=== PATIENT | male | born 1950 | race Caucasian/White ===

== ENCOUNTER 2019-02-27 05:01 | Day surgery (SDC) | payer MEDICARE ==
[2019-02-26 11:13] LABS: BASOPHILS % (AUTO) 0.6 % (0-1); EOSINOPHILS # (AUTO) 0.1 X10'3 (0-0.9); EOSINOPHILS % (AUTO) 2.4 % (0-6); HEMATOCRIT 45.7 % (42.0-52.0); HEMOGLOBIN 15.7 g/dl (14.0-17.9); LYMPHOCYTES # (AUTO) 1.3 X10'3 (1.1-4.8); LYMPHOCYTES % (AUTO) 31.6 % (21-51); MEAN CORPUSCULAR HEMOGLOBIN 33.4 PG (27.0-31.0); MEAN CORPUSCULAR HGB CONC 34.5 g/dL (33.0-36.5); MEAN PLATELET VOLUME 9.8 FL (7.4-10.4); MONOCYTES # (AUTO) 0.5 X10'3 (0-0.9); MONOCYTES % (AUTO) 11.2 % (2-12); NEUTROPHILS # (AUTO) 2.3 X10'3 (1.8-7.7); NEUTROPHILS % (AUTO) 54.2 % (42-75); PLATELET COUNT 131 X10'3 (140-440); RED BLOOD COUNT 4.71 X10'6 (4.70-6.10); RED CELL DISTRIBUTION WIDTH 12.9 % (11.5-14.5); WHITE BLOOD COUNT 4.2 X10'3 (4.5-11.0)
[2019-02-26 11:18] LABS: ALBUMIN 3.8 G/DL (3.4-5.0); ANION GAP 6 (8-16); BLOOD UREA NITROGEN 17 MG/DL (7-18); BUN/CREATININE RATIO 19.3 (5.4-32.0); CALCIUM 8.4 MG/DL (8.5-10.1); CHLORIDE 106 MMOL/L (99-107); CREATININE 0.88 MG/DL (0.60-1.10); GLUCOSE 107 MG/DL (70-104); POTASSIUM 4.3 MMOL/L (3.5-5.1); SODIUM 139 MMOL/L (135-145); TOTAL CARBON DIOXIDE 27.1 MMOL/L (24-32); eGFR 87 ML/MIN
[2019-02-26 11:22] LABS: PARTIAL THROMBOPLASTIN TIME 28 SECONDS (22-32)
[2019-02-27] VITALS (17 sets, daily range): BP systolic 97–145; BP diastolic 61–99
[~2019-02-27] VITALS: Ht 175.3 cm; Wt 91.0 kg
[2019-02-27] MEDS ORDERED: normal saline 1,000 ML IV SCH (05:40)
[2019-02-27] MEDS ORDERED: diphenhydrAMINE 25mg capsule PO PRN (05:40)
[2019-02-27] MEDS ORDERED: LORazepam 0.5 MG tablet PO PRN (05:40)
[2019-02-27] MEDS ORDERED: LIDOcaine/PRILOcaine 5gm cream TP ONE (05:40)
[2019-02-27] MEDS ORDERED: OMEP20TA5 PO (05:50)
[2019-02-27] MEDS ORDERED: TADA5TAB2 PO (05:50)
[2019-02-27] MEDS ORDERED: midazolam 2 mg/2 ml injection ONE (06:04)
[2019-02-27] MEDS ORDERED: heparin 1,000unit/ml 10ml vial 10 ML ONE (06:04)
[2019-02-27] MEDS ORDERED: iohexol 350 MG/ML 50ML vial IV ONE (06:04)
[2019-02-27] MEDS ORDERED: iohexol 350MG/ML 100ml bottle IV ONE (06:04)
[2019-02-27] MEDS ORDERED: fentaNYL/PF 50MCG/1 ML 2ML syringe ONE (06:04)
[2019-02-27] MEDS ORDERED: verapamil 2.5 mg/ml inj IV ONE (06:04)
[2019-02-27] MEDS ORDERED: nitroGLYCERIN-Tridil 50MG/D5W 250 ML IV ONE (06:04)
[2019-02-27] MEDS ORDERED: LIDOcaine 1% (10mg/ml)w/preservative injection 20ml MDV ONE (06:06)
[2019-02-27 09:21] LABS: ISTAT HGB ART 13.9 g/dl (14.0-18.0); ISTAT Hct ART 41 %PCV (42-52); ISTAT O2 SATURATION ARTERIAL 91 % (95-98); ISTAT SOURCE ART
[2019-02-27 09:21] LABS: ISTAT Hct MIX 41 %PCV (42-52); ISTAT O2 SATURATION MIX VENOUS 66 % (60-80); ISTAT SOURCE MIX
== END 2019-02-27 13:55 | disposition home or self-care (01) ==
LOC: SSTAY O 05:01
PROVIDERS: ATTEND Internal Medicine Cardiovascular Disease
DX: R94.39 Abnormal result of other cardiovascular function study (principal); I25.10 Atherosclerotic heart disease of native coronary artery without angina pectoris; E78.5 Hyperlipidemia, unspecified; I42.9 Cardiomyopathy, unspecified; J45.909 Unspecified asthma, uncomplicated; Z79.899 Other long term (current) drug therapy; Z96.652 Presence of left artificial knee joint; Z72.89 Other problems related to lifestyle; Z82.49 Family history of ischemic heart disease and other diseases of the circulatory system; Z79.01 Long term (current) use of anticoagulants
CPT/HCPCS: 36415; 80048; 82803; 85014; 85025; 85610; 85730; 93005; 93460; 99152; 99153; C1769; C1894; J1644; J2001; J2250; J3010; J7030; Q0163; Q9967; A4620; A6258; J3490

== ENCOUNTER 2020-03-19 10:18 | Day surgery (SDC) | payer MEDICARE ==
[2020-03-18 13:02] LABS: BASOPHILS % (AUTO) 0.9 % (0-1); EOSINOPHILS % (AUTO) 0.4 % (0-6); HEMATOCRIT 45.1 % (42.0-52.0); HEMOGLOBIN 15.6 g/dl (14.0-17.9); LYMPHOCYTES # (AUTO) 0.9 X10'3 (1.1-4.8); LYMPHOCYTES % (AUTO) 16.9 % (21-51); MEAN CORPUSCULAR HEMOGLOBIN 33.7 PG (27.0-31.0); MEAN CORPUSCULAR HGB CONC 34.5 g/dL (33.0-36.5); MEAN CORPUSCULAR VOLUME 97.6 FL (78-98); MEAN PLATELET VOLUME 9.6 FL (7.4-10.4); MONOCYTES # (AUTO) 0.5 X10'3 (0-0.9); MONOCYTES % (AUTO) 9.9 % (2-12); NEUTROPHILS # (AUTO) 3.7 X10'3 (1.8-7.7); NEUTROPHILS % (AUTO) 71.9 % (42-75); PLATELET COUNT 170 X10'3 (140-440); RED BLOOD COUNT 4.62 X10'6 (4.70-6.10); RED CELL DISTRIBUTION WIDTH 13.1 % (11.5-14.5); WHITE BLOOD COUNT 5.1 X10'3 (4.5-11.0)
[2020-03-18 13:08] LABS: ALBUMIN 3.8 G/DL (3.4-5.0); ANION GAP 8 (8-16); BLOOD UREA NITROGEN 29 MG/DL (7-18); BUN/CREATININE RATIO 26.6 (5.4-32.0); CALCIUM 8.8 MG/DL (8.5-10.1); CHLORIDE 107 MMOL/L (99-107); CREATININE 1.09 MG/DL (0.60-1.10); GLUCOSE 149 MG/DL (70-104); POTASSIUM 3.9 MMOL/L (3.5-5.1); SODIUM 141 MMOL/L (135-145); TOTAL CARBON DIOXIDE 25.7 MMOL/L (24-32); eGFR 67 ML/MIN
[2020-03-19] VITALS (19 sets, daily range): BP systolic 91–133; BP diastolic 47–93
[~2020-03-19] VITALS: Ht 175.3 cm; Wt 89.4 kg
[~2020-03-19 10:18] MED LIST: OMEP20TA5 PO; TADA5TAB2 PO
[2020-03-19] MEDS ORDERED: morphine 10mg/ml inj. IV ONE (10:35)
[2020-03-19] MEDS ORDERED: MIDAZolam 1mg/ml 10ml vial IV ONE (10:35)
[2020-03-19] MEDS ORDERED: amiodarone 150mg/dext, iso-os 100 ML IV ONE (10:35)
[2020-03-19] MEDS ORDERED: atropine 0.1mg/ml 10ml syringe IV ONE (10:35)
[2020-03-19] MEDS ORDERED: LORazepam 0.5 MG tablet PO ONE (10:35)
[2020-03-19] MEDS ORDERED: diphenhydrAMINE 25mg capsule PO ONE (10:35)
[2020-03-19] MEDS ORDERED: ALBU18HF2 INH (11:19)
[2020-03-19] MEDS ORDERED: LOSA50TA64 PO (11:20)
[2020-03-19] MEDS ORDERED: SPIR25TA5 PO (11:21)
--- NOTE | 2020-03-19 14:00 | NUR ---
Patient has ambulated the halls, has drank water, and is urinating. Patient has no complaints of dizziness or lightheadedness and has a steady gait. Patient has been educated regarding no driving for 24 hours, care after cardioversion, follow up appointment and when to seek medical attention. There have been no changes to his medications. , Kay is here to supervisor opening and picking patient and he has been escorted via to the car.
== END 2020-03-19 14:00 | disposition home or self-care (01) ==
LOC: SSTAY O 10:18
PROVIDERS: ATTEND Internal Medicine Cardiovascular Disease
DX: I48.19 Other persistent atrial fibrillation (principal); I25.10 Atherosclerotic heart disease of native coronary artery without angina pectoris; I42.0 Dilated cardiomyopathy; E78.5 Hyperlipidemia, unspecified; I34.0 Nonrheumatic mitral (valve) insufficiency; I49.5 Sick sinus syndrome; J45.909 Unspecified asthma, uncomplicated; Z96.652 Presence of left artificial knee joint; Z72.89 Other problems related to lifestyle; Z87.891 Personal history of nicotine dependence; Z79.01 Long term (current) use of anticoagulants; Z79.899 Other long term (current) drug therapy; Z82.49 Family history of ischemic heart disease and other diseases of the circulatory system
CPT/HCPCS: 36415; 80048; 85025; 85610; 92960; 93005; J0461; J2250; J2270

== ENCOUNTER 2021-01-14 07:47 | Outpatient (CLI) | payer MEDICARE ==
[~2021-01-14] VITALS: Ht 177.8 cm; Wt 90.7 kg
[2021-01-14] VITALS (8 sets, daily range): BP systolic 110–151; BP diastolic 69–95
[~2021-01-14 07:47] MED LIST changes: +ALBU18HF2 INH; +AMIO200T61 PO; +APIX5TAB3 PO; +BUDE10.22 INH; +LOSA50TA64 PO; +SPIR25TA5 PO; +[UNRECOGNIZED DRUG - OTHER]
[2021-01-14] MEDS ORDERED: regadenoson 0.4mg/5ml syringe IV ONE (08:35)
[2021-01-14] MEDS ORDERED: nitroGLYCERIN 0.4mg SUBLingual tab SL PRN (08:35)
[2021-01-14] MEDS ORDERED: metoprolol tartrate 1mg/ml inj IV PRN (08:35)
[2021-01-14] MEDS ORDERED: aminophylline 250mg/10ml inj. IV PRN (08:35)
== END 2021-01-14 23:59 | disposition home or self-care (01) ==
LOC: RAD 07:47
PROVIDERS: ATTEND Internal Medicine Cardiovascular Disease
DX: I25.10 Atherosclerotic heart disease of native coronary artery without angina pectoris (principal)
CPT/HCPCS: 78452; 93017; A9500; J0280; J2785

== ENCOUNTER 2022-07-06 10:32 | Emergency (ER) | payer MEDICARE ==
[~2022-07-06] VITALS: Ht 175.3 cm; Wt 90.9 kg
[~2022-07-06 10:32] MED LIST changes: +OMEP20TA43 PO; -OMEP20TA5 PO
[2022-07-06 11:00] LABS: BASOPHILS % (AUTO) 0.5 % (0-1); EOSINOPHILS # (AUTO) 0.1 X10'3 (0-0.9); EOSINOPHILS % (AUTO) 1.6 % (0-6); HEMATOCRIT 45.8 % (42.0-52.0); HEMOGLOBIN 15.7 g/dl (14.0-17.9); LYMPHOCYTES # (AUTO) 1.8 X10'3 (1.1-4.8); MEAN CORPUSCULAR HEMOGLOBIN 33.7 PG (27.0-31.0); MEAN CORPUSCULAR HGB CONC 34.3 g/dL (33.0-36.5); MEAN CORPUSCULAR VOLUME 98.3 FL (78-98); MEAN PLATELET VOLUME 9.6 FL (7.4-10.4); MONOCYTES # (AUTO) 0.9 X10'3 (0-0.9); MONOCYTES % (AUTO) 11.1 % (2-12); NEUTROPHILS # (AUTO) 4.9 X10'3 (1.8-7.7); NEUTROPHILS % (AUTO) 63.8 % (42-75); PLATELET COUNT 158 X10'3 (140-440); RED BLOOD COUNT 4.66 X10'6 (4.70-6.10); RED CELL DISTRIBUTION WIDTH 13.8 % (11.5-14.5); WHITE BLOOD COUNT 7.7 X10'3 (4.5-11.0)
[2022-07-06 11:09] LABS: ALANINE AMINOTRANSFERASE 19 U/L (12-78); ALBUMIN 3.7 G/DL (3.4-5.0); ALKALINE PHOSPHATASE 79 IU/L (46-116); ANION GAP 7 (8-16); ASPARTATE AMINO TRANSFERASE 16 U/L (10-37); BILIRUBIN,TOTAL 0.7 MG/DL (0.1-1.0); BLOOD UREA NITROGEN 24 MG/DL (7-18); BUN/CREATININE RATIO 22.2 (5.4-32.0); CALCIUM 9.3 MG/DL (8.5-10.1); CHLORIDE 107 MMOL/L (99-107); CREATININE 1.08 MG/DL (0.60-1.10); GLUCOSE 137 MG/DL (70-104); POTASSIUM 4.6 MMOL/L (3.5-5.1); SODIUM 140 MMOL/L (135-145); TOTAL CARBON DIOXIDE 26.5 MMOL/L (24-32); TOTAL PROTEIN 7.3 G/DL (6.4-8.2); eGFR 68 ML/MIN
[2022-07-06 11:22] VITALS: BP 77/52
--- NOTE | 2022-07-06 11:22 | NUR ---
NOTIFIED RESERVOIR ENGINEERING CONSULTANT OF PT STATUS AND NEED FOR IMMEDAITE BED, HOWEVER, NO ROOMS AVAILABLE AT THIS TIME.
--- NOTE | 2022-07-06 12:13 | NUR ---
pt not in lobby attempted to reach pt via cell phone on record, reached his who states she is at work and that she had spoken to him and he was going out to his truck. Went out to parking lot in an attempt to locate patient unable to locate. attempted second phone number on record and received voicemail. attempted to contact a second time to obtain a cell phone number for patient without success this tech writer reached her voicemail.
== END 2022-07-06 15:55 | disposition left against medical advice (07) ==
LOC: ER 10:33
DX: R94.31 Abnormal electrocardiogram [ECG] [EKG] (principal); Z53.21 Procedure and treatment not carried out due to patient leaving prior to being seen by health care provider
CPT/HCPCS: 36415; 80053; 83735; 83880; 84484; 85025; 93005; 99281